=== PATIENT | female | born 1960 | race Caucasian/White ===

== ENCOUNTER 2018-04-27 08:39 | Observation (INO) ==
[2018-04-27] MEDS ORDERED: Chlorhexidine Gluconate 2% 1 Pack (2 Cloths) TOPICAL ONE (09:08)
[2018-04-27] MEDS ORDERED: Metoprolol Tartrate 25 MG Tablet PO ONE (09:08)
[2018-04-27] MEDS ORDERED: ceFAZolin 2 GM IV; once IV.SIG PRN (09:10)
[2018-04-27] MEDS ORDERED: Sodium Chlor 0.9% Inj 500 ML IV.SIG SCH (10:00)
[2018-04-27] MEDS ORDERED: Sugammadex Inj 200 MG/2 ML Vial IV.PUSH ONE (10:20)
[2018-04-27] MEDS ORDERED: Bupivacaine/Epinephrine PF Inj 0.5% 30 ML Vial ONE (10:32)
[2018-04-27] MEDS ORDERED: Isosulfan Blue Inj 50 MG/5 ML Vial SQ ONE (11:08)
[2018-04-27] MEDS ORDERED: Lidocaine PF 1% Inj 5 ML Syringe INFILTRATN ONE (11:51)
[2018-04-27] MEDS ORDERED: Morphine Inj 4 MG/ML Vial ONE (14:19)
[2018-04-27] MEDS ORDERED: fentaNYL Citrate Inj 100 MCG/2 ML Ampul ONE ×2 (14:19)
--- NOTE | 2018-04-27 14:28 | P.OP ---
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 Carranza 2 Left breast reconstruction with Tissue Field Spec and Allomax graft - by Dr. Martinez Anesthesia: KRISTY Surgeon: Nathan Martinez MD Store Manager: Marichuy Walker Rn Estimated blood loss (mL): 5 Operation and Findings: Indications: Left breast cancer - patient desiring Left side mastectomy - nipple sparing or areola sparing if possible and immediate tissue personnel representative stage I reconstruction. Patient has undergone extensive discussion about recon options and pros, cons, risks, possible complications including the [facility] informed consent brochure. She is willing to go ahead with tissue personnel representative and Allomax immediate recon on the left side. Does not want any muscle flaps or autologous recon at this time. She understands that there are risks of bleeding , hematoma, seroma, flap necrosis, wound healing problems, wound dehiscence, infection, loss of reconstruction prosthesis if there is infection or exposure and multiple future surgeries or other interventions may be necessary. There may be asymmetry between two sides due to multiple factors, there may be loss of reconstruction. Future reconstruction efforts may depend upon the tissue and health status in future - including any radiation therapy, chemotherapy etc. There may be lymphatic blockage / lymphedema in postoperative period. Chronic pain, scarring, uneven surface appearances, reduced / restricted function of her chest wall muscles etc. Flap numbness and variations of thickness / vascularity possible and may persist. Hypertrophic scar, keloid formation etc possible. Other possible general risks including those with anesthesia, medications, smoking and other medical issues also accepted by patient. She has grade III nipple areola and glandular ptosis, moderate obesity, smoker, not diabetic. A Prasad pattern single large flap may more likely to result in flap circulation compromise - a two part smaller flaps with central horizontal oblique excess skin excision design can be used instead, leaving the nipple / areola with the bottom flap. Second stage recon with implants explained for future, expanders and implants shown, both saline, silicone, smooth, textured - also round, tear drops, different profiles and sizes explained. She is willing to go ahead with the stage I tissue personnel representative and Allomax reconstruction. Procedure: Preoperative markings of patient Left breast done in holding area. A long oblique central skin excision planned in order to get the upper flap to 24 cm nipple position and lower flap at 9 cm from IMF to the 3 o'clock and 9 o' clock position on the areola, going around the areola in the upper half. The nipple can not be saved due to oncologic reasons. Patient was brought to the OR, anesthesia started, time out completed , prep and drape done, antibiotics given. Mastectomy / LN surgery will be dictated by Dr. Carranza for her part. At the end of mastectomy, the reported blood loss was 200 cc. Breast specimen weight 705 grams. Surgery was continued by myself. The operated site / flaps and chest - breast pocket thoroughly irrigated with saline solution. Fresh drapes placed. Subpectoral pocket was created, Allomax 8 x 16 cm hydrated and treated with Gentamicin placed along the anterior axillary line with smooth side down. It was sutured in place with 2/0 Vicryls, outer lower corner rounded off to the IMF. Allomax [id number] - Serial # [id number]. Tissue personnel representative used Arrayitan [id number] SN [id number] - rinsed with Gentamycin solution, air evacuated, placed in the subpectoral pocket and oriented fill port superior. Allomax free border secured to lateral border of [place]. Two 10 mm EDGARD drains used, one in axilla, one along the IMF and medial and upper flap. Allomax was also fenestrated in the lower half to allow drainage from the implant pocket area. Flaps approximated with 2/ 0 and 3/0 Vicryls - Center skin of the upper flap left long to match the areola border - the color of the areola was slightly congested but the dermis appeared to have some capillary refill and it was not cold to touch. It was covered in warm wet lap while the rest of the flap was sutured in 2 layers vicryl and skin with Prolene. The final inspection of the areola showed it had reasonably good color and a decision was made to save it at this time. Rest of the flap to areola closure completed. Field Spec filled with sterile saline using three way no touch technic - 400 cc final fill. All areas cleaned and sterile dressing applied. Intraoperative blood loss less than 5 cc in the second part. No complication, patient stable. Nathan Martinez MD, FACS
[2018-04-27] MEDS ORDERED: Morphine Sulfate Inj 8 MG/ML Vial ONE (14:32)
--- NOTE | 2018-04-27 14:36 | MP ---
cc: Elle Carranza MD DATE OF OPERATION: 04/27/2018 DATE OF SURGERY: 04/27/2018 PREOPERATIVE DIAGNOSIS: Left breast cancer with an extensive intraductal component. POSTOPERATIVE DIAGNOSIS: Left breast cancer with an extensive intraductal component. PROCEDURE PERFORMED: Left areolar skin-sparing mastectomy with left axillary sentinel lymph node biopsy and immediate tissue cigarette package examiner reconstruction. SURGEON: Elle Carranza MD ENTRY LEVEL: Dr. Nathan Martinez. ANESTHESIA: General via endotracheal tube. INDICATIONS: The patient is a 57-year-old female with a history of recently diagnosed central invasive carcinoma with an extensive intraductal component. She required mastectomy to obtain local control and has opted for immediate reconstruction. She now presents for the procedure. FINDINGS AT THE TIME OF SURGERY: No gross evidence of carcinoma was identified in the breast specimen. Two sentinel lymph nodes were removed; #1 was enlarged and suspicious and #2 was also enlarged and suspicious. No count was identified in either node. DESCRIPTION OF PROCEDURE: After informed consent was obtained, and site verification was performed, the patient was brought to the radiology suite where she underwent peritumoral radionucleotide injection. She was then brought to the major operating room where she underwent general anesthesia via an LMA device. She was given a single dose of IV Ancef and sequential compression hose were placed. The left and right breasts were prepped and draped in sterile fashion to include the left arm. A central incision was created to allow for areolar sparing and mastopexy of the skin tissue following mastectomy;120 mL of tumescent solution mixed with 30 mL of 0.5% Marcaine with epinephrine were then infiltrated circumferentially around the breast in the plane between the subcutaneous fat and anterior breast fascia. Sharp dissection was performed in the same plane superiorly to the clavicle, medially to the parasternal area, inferiorly to the anterior rectus sheath, and laterally to the axilla. Following the skin sparing incision to preserve and lift the areola, a separate smaller circumferential incision was sharply created around the nipple to include the nipple with the breast specimen. Electrocautery dissection was then performed to dissect the breast tissue off the underlying pectoralis muscle and including the pectoralis fascia with the specimen. The specimen was oriented with the skin and nipple anterior; 1 short suture superiorly, and 1 long suture laterally. The specimen was weighed and sent for permanent pathologic evaluation following amputation in the axilla. The clavipectoral fascia was then divided and the level 1 axilla was entered. Two enlarged mid-level 1 lymph nodes were immediately identified and each was circumferentially dissected free from surrounding structures using the Harmonic scalpel. Each of these nodes was approximately 2 cm in size and they did not have a radioactive count, but were considered suspicious and were sent as sentinel lymph nodes, 1 and 2. There was no residual radioactivity in the axilla. Good hemostasis was noted and reconstruction was then performed by Dr. Martinez, which will be recorded on a separate dictation. MD FAITH Guzman/christelle , 01:26 PM , 01:36 PM MTDReinier
[2018-04-27] MEDS ORDERED: HYDROmorphone PF Inj 1 MG/ML Ampul IV.PUSH PRN (16:49)
[2018-04-27] MEDS: ceFAZolin 2 GM Premix Inj 2 GM/50 ML PIGGYBACK IV.SIG SCH ×2 (17:03→23:59)
[2018-04-27] MEDS ORDERED: Morphine Inj 30 MG/30 ML PCA.VIAL PCA PRN (19:19)
--- NOTE | 2018-04-28 07:30 | P.PNPLA ---
Subjective Remarks: Patient doing good post op. "Lots of pain" - mostly in axilla area. 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 Vitals good, breast flaps viable, areola area slightly darker but looks viable at this time. Will watch for any changes over next several days. Drain active, more serous now. Machine Printer palpable, no hematoma. flaps edema + but soft. Lower half of agricultural inspector is less prominent - may need to use a bandaeu in a few days if the flaps are in good viability. OK for now. Will see patient back in office when discharged. She may need to stay over one more night for pain control. Will change from Morphine to Dilaudid for the CRAFT SUPERINTENDENT. Objective Vital Signs: Vital Signs - 24 hr 04/27/18 09:40 04/27/18 14:12 04/27/18 14:17 Temperature 97.8 F Pulse Rate 58 L 63 65 Respiratory Rate 18 16 Blood Pressure 157/79 H 183/92 H Pulse Oximetry 98 04/27/18 14:28 04/27/18 14:40 04/27/18 14:45 Temperature 97.5 F L Pulse Rate 72 59 L 59 L Respiratory Rate 16 16 Blood Pressure 158/81 H 188/76 H 185/92 H Pulse Oximetry 96 04/27/18 15:02 04/27/18 15:31 04/27/18 16:07 Temperature 97.7 F Pulse Rate 63 67 62 Respiratory Rate 16 14 16 Blood Pressure 181/87 H 162/80 H 163/85 H Pulse Oximetry 04/27/18 16:30 04/27/18 17:26 04/27/18 17:29 Temperature Pulse Rate Respiratory Rate 18 18 18 Blood Pressure Pulse Oximetry 04/27/18 17:56 04/27/18 20:00 04/27/18 20:30 Temperature 98.3 F Pulse Rate 66 Respiratory Rate 18 18 18 Blood Pressure 179/82 H Pulse Oximetry 95 04/28/18 00:00 04/28/18 01:00 Temperature 98.7 F Pulse Rate 68 Respiratory Rate 18 Blood Pressure 193/89 H 168/90 H Pulse Oximetry 96 Intake & Output 04/26/18 04/27/18 04/28/18 04/29/18 06:59 06:59 06:59 06:59 Intake Total 4430 / 4430 Output Total 2200 / 2200 Balance 2230 / 2230 Weight 92.9 kg
[2018-04-28] MEDS ORDERED: HYDROmorphone PF Inj 1 MG/ML Ampul IV.PUSH ONE (07:32)
[2018-04-28] MEDS ORDERED: Naloxone Inj 0.4 MG/ML Vial IV.PUSH PRN (07:32)
[2018-04-28] MEDS ORDERED: HYDROmorphone PF Inj 1 MG/ML Ampul IV.PUSH PRN (08:45)
[2018-04-28] MEDS: ceFAZolin 2 GM Premix Inj 2 GM/50 ML PIGGYBACK IV.SIG SCH ×2 (08:53→16:46)
--- NOTE | 2018-04-28 08:54 | P.PNGS ---
Subjective Patient reports: still having pain, tolerating liquids well Physical Exam Vital signs: Vital Signs 04/27/18 09:40 04/27/18 14:12 04/27/18 14:17 Temperature 97.8 F Pulse Rate 58 L 63 65 Respiratory Rate 18 16 Blood Pressure 157/79 H 183/92 H Pulse Oximetry 98 04/27/18 14:28 04/27/18 14:40 04/27/18 14:45 Temperature 97.5 F L Pulse Rate 72 59 L 59 L Respiratory Rate 16 16 Blood Pressure 158/81 H 188/76 H 185/92 H Pulse Oximetry 96 04/27/18 15:02 04/27/18 15:31 04/27/18 16:07 Temperature 97.7 F Pulse Rate 63 67 62 Respiratory Rate 16 14 16 Blood Pressure 181/87 H 162/80 H 163/85 H Pulse Oximetry 04/27/18 16:30 04/27/18 17:26 04/27/18 17:29 Temperature Pulse Rate Respiratory Rate 18 18 18 Blood Pressure Pulse Oximetry 04/27/18 17:56 04/27/18 20:00 04/27/18 20:30 Temperature 98.3 F Pulse Rate 66 Respiratory Rate 18 18 18 Blood Pressure 179/82 H Pulse Oximetry 95 04/28/18 00:00 04/28/18 01:00 Temperature 98.7 F Pulse Rate 68 Respiratory Rate 18 Blood Pressure 193/89 H 168/90 H Pulse Oximetry 96 Intake & Output 04/27/18 04/28/18 04/28/18 18:59 06:59 18:59 Intake Total 2780 / 2780 1650 / 1650 Output Total 245 / 245 1955 / 1955 Balance 2535 / 2535 -305 / -305 Weight 92.986 kg 92.9 kg Intake: IV 1200 / 1200 1050 / 1050 Ofirmev Inj 1,000 mg In 100 ml 100 / 100 @ 0 mls/hr IV.SIG .STK-MED ONE Rx#:[id number] LR 1000 mL Inj 1,000 ML @ 150 1000 / 1000 1000 / 1000 mls/hr IV.SIG .Q6H40M UZMA Rx#: [id number] Ancef 2 GM Premix Inj 2 gm In 100 / 100 50 / 50 50 ml @ 50 mls/hr IV.SIG Q8H UZMA Rx#:[id number] Oral 480 / 480 600 / 600 Anesthesia Amount 1100 / 1100 Output: Urine 1850 / 1850 Estimated Blood Loss 205 / 205 Wound Drainage 40 / 40 105 / 105 # 1 Left EDGARD Drain 55 / 55 # 2 Left Abdomen EDGARD Drain 50 / 50 Other: # Voids 1 Date of Last Bowel Movement 04/26/18 # Bowel Movements 0 Weight On Admission 92.986 kg Narrative: Drain output 145 cc. PO intake 1080 cc. - Routine HEENT Exam Comments: Wound clean and dry. Mild ecchymosis left areola. No infection. Assessment and Plan - Plan Needs better pain control and activity prior to discharge. 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 Anticipate discharge tomorrow.
[2018-04-28] MEDS: HYDROmorphone PCA Inj 6 MG/30 ML PCA.VIAL PCA PRN (11:13)
[2018-04-29] MEDS: ceFAZolin 2 GM Premix Inj 2 GM/50 ML PIGGYBACK IV.SIG SCH ×2 (00:30→08:52)
[2018-04-29] MEDS: HYDROmorphone PCA Inj 6 MG/30 ML PCA.VIAL PCA PRN (01:00)
[2018-04-29 08:28] VITALS: BP 167/80; PULSE 81; TEMP 97.6; O2SAT 97
--- NOTE | 2018-04-29 09:41 | P.PNGS ---
Subjective Patient reports: feels better, pain is less, tolerating a regular diet Physical Exam Vital signs: Vital Signs 04/28/18 12:00 04/28/18 16:00 04/28/18 16:39 Temperature 99.3 F 98.7 F Pulse Rate 74 71 Respiratory Rate 19 20 17 Blood Pressure 189/83 H 171/77 H Pulse Oximetry 96 96 04/28/18 20:52 04/29/18 00:36 04/29/18 06:35 Temperature 99.4 F 98.8 F Pulse Rate 79 73 Respiratory Rate 18 18 18 Blood Pressure 159/75 H 178/80 H Pulse Oximetry 93 L 94 L 04/29/18 08:00 Temperature 97.6 F Pulse Rate 81 Respiratory Rate 19 Blood Pressure 167/80 H Pulse Oximetry 97 Intake & Output 04/28/18 04/29/18 04/29/18 18:59 06:59 18:59 Intake Total 1060 / 1060 650 / 650 240 / 240 Output Total 1660 / 1660 485 / 485 Balance -600 / -600 165 / 165 240 / 240 Weight 91.8 kg Intake: IV 100 / 100 50 / 50 Ancef 2 GM Premix Inj 2 gm In 100 / 100 50 / 50 50 ml @ 50 mls/hr IV.SIG Q8H UZMA Rx#:[id number] Oral 720 / 720 600 / 600 240 / 240 Tube Feeding 240 / 240 Output: Urine 1600 / 1600 425 / 425 Wound Drainage 60 / 60 60 / 60 # 1 Left EDGARD Drain 30 / 30 30 / 30 # 2 Left Abdomen EDGARD Drain 30 / 30 30 / 30 Other: # Voids 3 Narrative: Flaps viable. No infection. Mild ecchymosis at areola. Assessment and Plan - Plan Pain control improved. Change to oral regimen and discharge home today. - Attending Attestation OK for discharge
[2018-04-29 12:33] VITALS: RESP 18
== END 2018-04-29 12:53 | disposition home or self-care (01) ==
LOC: PH3 08:39 → PHSDC 08:39
PROVIDERS: ADMIT Surgery; ATTEND Surgery